=== PATIENT | female | born 1995 | race Two or more races ===

== ENCOUNTER 2017-08-02 19:36 | Emergency (ER) | payer OTHER ==
[2017-08-02 22:01] VITALS: BP 123/76
--- NOTE | 2017-08-02 22:06 | UC ---
Ear Complaint HPI - HPI Summary HPI Summary: 21 year old female with ear complaint. her ears feel full like she is on an airplane. she has felt that way for a few days. she has some pain. she has had some sore throat as well. feels scratchy. no body aches. mild cough. [ End ] - History of Current Complaint Chief Complaint: UCEar Stated Complaint: PLUGGED EARS , SORE THROAT Time Seen by Provider: 08/02/17 22:05 Hx Obtained From: Patient Onset/Duration: Gradual Onset Pain Intensity: 0 - Allergies/Home Medications Allergies/Adverse Reactions: Allergies Allergy/AdvReac Type Severity Reaction Status Date / Time No Known Allergies Allergy Verified 08/02/17 22:02 Home Medications: Home Medications Control 1 dose PO DAILY 08/02/17 [History Confirmed 08/02/17] PMH/Surg Hx/FS Hx/Imm Hx Previously Healthy: Yes - Surgical History Surgical History: Yes Surgery Procedure, Year, and Place: [facility]. T&A. Major abd surgery for Choledochal cysts - Family History Known Family History: Positive: None - Social History Occupation: Student Alcohol Use: Occasionally Substance Use Type: None Smoking Status (MU): Never Smoked Tobacco Review of Systems ENT: Sore Throat, Ear Ache, Nasal Discharge Respiratory: Cough Is Patient Immunocompromised?: No All Other Systems Reviewed And Are Negative: Yes Physical Exam Triage Information Reviewed: Yes Appearance: Well-Appearing, No Pain Distress, Well-Nourished Vital Signs: Initial Vital Signs Temp 98.2 F 08/02/17 21:57 Pulse 63 08/02/17 21:57 Resp 14 08/02/17 21:57 BP 123/76 08/02/17 21:57 Pulse Ox 100 08/02/17 21:57 Vital Signs Reviewed: Yes Eye Exam: Normal ENT Exam: Normal ENT: Positive: Nasal congestion, Nasal drainage, TM dull - b/l R> L. Negative: Tonsillar swelling, Tonsillar exudate Dental Exam: Normal Neck exam: Normal Neck: Positive: 1 Respiratory Exam: Normal Cardiovascular Exam: Normal Musculoskeletal Exam: Normal Neurological Exam: Normal Psychological Exam: Normal Skin Exam: Normal Ear Complaint Course/Dx - Course Course Of Treatment: viral at this time. RTO if any concerns - Differential Dx/Diagnosis Differential Diagnosis/HQI/PQRI: Otitis Externa, Otitis Media, Perforated TM, URI Provider Diagnoses: 1)URI. 2) serous effusion bilateral Discharge - Discharge Plan Condition: Good Disposition: HOME Patient Education Materials: Upper Respiratory Infection (ED) Referrals: No Primary Care Phys,NOPCP [Primary Care Provider] - 4 Days Additional Instructions: You appear to have a viral infection causing some an effusion behind the ear which is fluid behind the ear drums. Consider medication like claritin D and Flonase in the Am and in the PM the Netti Pot and Nyquil until your symptoms resolve.
== END 2017-08-02 22:29 | disposition home or self-care (01) ==
LOC: UCCORT 19:36
DX: J06.9 Acute upper respiratory infection, unspecified (principal); H65.93 Unspecified nonsuppurative otitis media, bilateral
CPT/HCPCS: 99211; G0463